=== PATIENT | female | born 1975 | race African-American/Black ===

== ENCOUNTER 2017-01-24 15:46 | Emergency (ER) | payer BC ==
[2017-01-24] MEDS ORDERED: SODIUM CHLORIDE FLUSH 10ML SYR IVF ONE (16:00)
[2017-01-24] MEDS ORDERED: SODIUM CHLORIDE 0.9% 1,000ML IVBOLUS ONE (16:00)
[2017-01-24 17:25] LABS: HEMOGLOBIN 8.4 g/dL (11.7-16.4)
[2017-01-24 17:39] LABS: BLOOD UREA NITROGEN 6 mg/dL (7-18)
[2017-01-24 17:41] LABS: ASPARTATE AMINO TRANSFERASE 158 U/L (15-37)
[2017-01-24 19:06] VITALS: BP 114/74
== END 2017-01-24 19:10 | disposition home or self-care (01) ==
LOC: ED 18:33
DX: R53.81 Other malaise (principal); D64.9 Anemia, unspecified; D68.9 Coagulation defect, unspecified; R91.1 Solitary pulmonary nodule; R74.0 Nonspecific elevation of levels of transaminase and lactic acid dehydrogenase [LDH]; Z85.3 Personal history of malignant neoplasm of breast
CPT/HCPCS: 36415; 71010; 80048; 80076; 81001; 82040; 83605; 85025; 85610; 87040; 96360; 99285; J7030

== ENCOUNTER 2017-02-12 20:52 | Emergency (ER) | payer BC ==
[~2017-02-12] VITALS: Ht 162.6 cm; Wt 65.0 kg
[2017-02-12] MEDS ORDERED: SODIUM CHLORIDE 0.9% 1,000 ML IV ONE (21:33)
[2017-02-12] MEDS ORDERED: METOCLOPRAMIDE 5 MG/ML, 2ML IVPush ONE (22:00)
[2017-02-12] MEDS ORDERED: KETOROLAC 30 MG/1 ML IVPush ONE (22:00)
[2017-02-12] MEDS ORDERED: ONDANSETRON 2MG/ML, 2ML IVPush ONE (22:00)
[2017-02-12] MEDS ORDERED: SODIUM CHLORIDE FLUSH 10ML SYR IVF ONE (22:00)
[2017-02-12] MEDS ORDERED: ONDANSETRON 2MG/ML, 2ML ONE (22:13)
[2017-02-12] MEDS ORDERED: METOCLOPRAMIDE 5 MG/ML, 2ML ONE (22:13)
[2017-02-12] MEDS ORDERED: KETOROLAC 30 MG/1 ML ONE (22:13)
[2017-02-12 22:19] LABS: ASPARTATE AMINO TRANSFERASE 130 U/L (15-37); BLOOD UREA NITROGEN 12 mg/dL (7-18); HEMOGLOBIN 7.3 g/dL (11.7-16.4)
[2017-02-12 23:17] VITALS: BP 99/66
[2017-02-12 23:33] VITALS: BP 99/66
[2017-02-13 00:54] VITALS: BP 90/51
[2017-02-13 02:38] VITALS: BP 99/64
[2017-02-13 02:50] VITALS: BP 99/64
[2017-02-13 03:24] VITALS: BP 101/65
[2017-02-13 04:10] VITALS: BP 105/63
[2017-02-13] MEDS ORDERED: SULF1TAB23 PO (17:41)
== END 2017-02-13 04:28 | disposition home or self-care (01) ==
LOC: ED 23:59
DX: D64.9 Anemia, unspecified (principal); C50.919 Malignant neoplasm of unspecified site of unspecified female breast; Z51.11 Encounter for antineoplastic chemotherapy; D47.3 Essential (hemorrhagic) thrombocythemia; R79.89 Other specified abnormal findings of blood chemistry
CPT/HCPCS: 36415; 36430; 74020; 80053; 85025; 86850; 86900; 86923; 96361; 96374; 96375; 99285; J1885; J2405; J2765; J7030; P9016

== ENCOUNTER 2017-02-13 17:04 | Emergency (ER) | payer BC ==
[~2017-02-13] VITALS: Ht 162.6 cm; Wt 63.6 kg
[2017-02-13] MEDS ORDERED: SODIUM CHLORIDE 0.9% 1,000 ML IV ONE (17:16)
[2017-02-13] MEDS ORDERED: ONDANSETRON 2MG/ML, 2ML IVPush ONE (17:30)
[2017-02-13] MEDS ORDERED: SODIUM CHLORIDE FLUSH 10ML SYR IVF ONE (17:30)
[2017-02-13] MEDS ORDERED: SULF1TAB23 PO (17:41)
[2017-02-13] MEDS ORDERED: ONDANSETRON 2MG/ML, 2ML ONE (17:45)
[2017-02-13 17:57] LABS: HEMOGLOBIN 10.6 g/dL (11.7-16.4)
[2017-02-13 18:03] LABS: ASPARTATE AMINO TRANSFERASE 123 U/L (15-37); BLOOD UREA NITROGEN 7 mg/dL (7-18)
[2017-02-13] MEDS ORDERED: METOCLOPRAMIDE 5 MG/ML, 2ML ONE (18:16)
[2017-02-13] MEDS ORDERED: METOCLOPRAMIDE 5 MG/ML, 2ML IVPush ONE (18:30)
[2017-02-13] MEDS ORDERED: OMNIPAQUE 350 MG/ML, 100ML BOTTLE ONE (18:42)
[2017-02-13 19:54] VITALS: BP 121/74
== END 2017-02-13 20:09 | disposition home or self-care (01) ==
LOC: ED 18:17
DX: R11.2 Nausea with vomiting, unspecified (principal); Z85.3 Personal history of malignant neoplasm of breast
CPT/HCPCS: 36415; 74177; 80053; 85025; 96361; 96374; 96375; 99285; J2405; J2765; J7030; Q9967